=== PATIENT | male | born 1945 | race Caucasian/White ===

== ENCOUNTER 2017-12-26 08:51 | Inpatient (IN) | payer MEDICARE ==
[~2017-12-26 08:51] MED LIST: LIDOCAINE 2% (SDV) 5 ML INJ
[2017-12-26] MEDS ORDERED: ROCURONIUM 50 MG INJ (09:16)
[2017-12-26] MEDS ORDERED: PROPOFOL 20 ML (09:16)
[2017-12-26] MEDS ORDERED: CEFAZOLIN 1 GM INJ (09:16)
[2017-12-26] MEDS ORDERED: NEOSTIGMINE 3 MG/3 ML SYRINGE (09:16)
[2017-12-26] MEDS ORDERED: GLYCOPYRROLATE 0.4 MG INJ (09:16)
[2017-12-26] MEDS ORDERED: MIDAZOLAM 1 MG/ML 2 ML INJ (09:16)
[2017-12-26] MEDS ORDERED: ONDANSETRON 4 MG INJ (09:17)
[2017-12-26] MEDS ORDERED: DEXAMETHASONE 4 MG/ML 1 ML INJ (09:17)
[2017-12-26] MEDS ORDERED: SUGAMMADEX SODIUM 200 MG/2 ML VIAL IV ×2 (09:24→11:34)
[2017-12-26] MEDS ORDERED: D5W-0.45 NACL + KCL 20 MEQ 1,000 ML IV (09:37)
[2017-12-26] MEDS ORDERED: CA CHLORIDE 10% 10 ML SYRINGE (09:59)
[2017-12-26] MEDS ORDERED: CYCLOBENZAPRINE 10 MG TAB PO (10:00)
[2017-12-26] MEDS ORDERED: HYDROmorphONE 0.2 MG/ML PCA IV (10:00)
[2017-12-26] MEDS ORDERED: ZOLPIDEM 5 MG TAB PO (10:00)
[2017-12-26] MEDS ORDERED: DIPHENHYDRAMINE 50 MG INJ IV ×2 (10:00→11:00)
[2017-12-26] MEDS ORDERED: AL HYDROX/MG HYDROX/SIMETH 30 ML CUP PO (10:00)
[2017-12-26] MEDS ORDERED: ONDANSETRON 4 MG INJ IV ×2 (10:00→11:00)
[2017-12-26] MEDS ORDERED: BISACODYL 10 MG SUPP PR (10:00)
[2017-12-26] MEDS ORDERED: HYDROmorphONE 0.5 MG/0.5 ML SYG IV (10:00)
[2017-12-26] MEDS ORDERED: CEFAZOLIN 1 GM/50 ML (PMX) 50 ML IVPB (10:00)
[2017-12-26] MEDS ORDERED: NALOXONE (0.4 MG/ML) INJ IV (10:00)
[2017-12-26] MEDS ORDERED: HYDROCODONE/APAP (10/325) TAB PO ×2 (10:00)
[2017-12-26] MEDS ORDERED: CEPASTAT LOZENGE MT (10:00)
[2017-12-26] MEDS: BUPIVACAINE 0.25%/EPI (SDV) 30 ML INJ (10:54)
[2017-12-26] MEDS: THROMBIN 5000 UNIT VIAL (10:55)
[2017-12-26] MEDS: POLYMYXIN/BACITRACIN 1L IRRIG (10:55)
[2017-12-26] MEDS: SURGIFOAM POWDER 1 GM KIT (10:57)
[2017-12-26] MEDS ORDERED: TRIMETHOBENZAMIDE 100 MG/ML VIAL IM (11:00)
[2017-12-26] MEDS ORDERED: OXYCODONE/ACETAMINOPHEN (5/325) TAB PO ×2 (11:00)
[2017-12-26] MEDS ORDERED: MEPERIDINE 25 MG INJ IV (11:00)
[2017-12-26] MEDS ORDERED: EPHEDrine SULFATE 50 MG/5 ML SYG IV (11:00)
[2017-12-26] MEDS ORDERED: ALBUTEROL 0.083% (NEB) 2.5 MG/3 ML AMP HHN (11:00)
[2017-12-26] MEDS ORDERED: hydrALAzine 20 MG INJ IV (11:00)
[2017-12-26] MEDS ORDERED: HYDROmorphONE (0.2 MG/ML) 10ML SYG IV ×3 (11:00)
[2017-12-26] MEDS ORDERED: MIDAZOLAM 1 MG/ML 2 ML INJ IV (11:00)
[2017-12-26] MEDS ORDERED: LABETALOL HCL 20MG INJ IV (11:00)
[2017-12-26] MEDS ORDERED: FENTAnyl 50 MCG/ML VIAL IV ×3 (11:00)
[2017-12-26] MEDS ORDERED: IPRATROPIUM (NEB) 0.5 MG/2.5 ML AMP HHN (11:00)
[2017-12-26] MEDS: BUPIVACAINE 0.25% (MPF) 30 ML INJ (11:48)
[2017-12-26] MEDS: ACETAMINOPHEN 325 MG TAB PO (13:32)
[2017-12-26] MEDS: TAMSULOSIN (SR) 0.4 MG CAP PO (13:57)
[2017-12-26] MEDS ORDERED: DOCUSATE SODIUM 100 MG CAP PO (21:00)
[2017-12-26] MEDS ORDERED: ATORVASTATIN 10 MG TAB PO (21:00)
== END 2017-12-26 14:59 | disposition home or self-care (01) | DRG 517 ==
LOC: REC 08:51
PROC: 0SP00AZ Removal of Interbody Fusion Device from Lumbar Vertebral Joint, Open Approach (ICD-10-PCS; principal; 2017-12-26 10:00)
PROC: 0SP304Z Removal of Internal Fixation Device from Lumbosacral Joint, Open Approach (ICD-10-PCS; 2017-12-26 10:00)
PROC: 0QU00KZ Supplement Lumbar Vertebra with Nonautologous Tissue Substitute, Open Approach (ICD-10-PCS; 2017-12-26 10:00)
PROC: 0SU Lower Joints, Supplement (ICD-10-PCS; 2017-12-26 10:00)
DX: T84.226A Displacement of internal fixation device of vertebrae, initial encounter (principal); T84.84XA Pain due to internal orthopedic prosthetic devices, implants and grafts, initial encounter; M54.17 Radiculopathy, lumbosacral region; Y79.2 Prosthetic and other implants, materials and accessory orthopedic devices associated with adverse incidents
CPT/HCPCS: 72100; 86999; 88300; 97162